=== PATIENT | male | born 1995 | race Hispanic/Latino ===

== ENCOUNTER 2016-09-28 00:48 | Emergency (ER) | payer OTHER ==
[2016-09-28] MEDS ORDERED: TDAP Vaccine 0.5 mL Syr IM ONE (01:04)
[2016-09-28] MEDS ORDERED: Lidocaine/Epi 1% 1:100000 20 ML IJ ONE (01:05)
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
[2016-09-28] MEDS ORDERED: Lidocaine 2% w Epi 1:100,000 Inj IJ ONE (02:18)
[2016-09-28] MEDS ORDERED: Lidocaine 2% w Epi 1:200,000 Pf Inj IJ ONE (02:25)
[2016-09-28 02:54] VITALS: BP 130/74; PULSE 83; RESP 16; TEMP 98.1
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
[2016-10-01 20:10] VITALS: O2SAT 98
== END 2016-09-28 02:51 | disposition home or self-care (01) ==
LOC: H.ER 00:48
DX: S09.90XA Unspecified injury of head, initial encounter (principal); S01.81XA Laceration without foreign body of other part of head, initial encounter; Y04.0XXA Assault by unarmed brawl or fight, initial encounter; Y92.89 Other specified places as the place of occurrence of the external cause; F10.10 Alcohol abuse, uncomplicated

== ENCOUNTER 2016-10-02 18:25 | Emergency (ER) | payer OTHER ==
[2016-10-02 18:53] VITALS: BP 136/76; PULSE 68; RESP 18; TEMP 98.2; O2SAT 100
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
== END 2016-10-02 19:33 | disposition home or self-care (01) ==
LOC: H.ER 18:25
DX: Z48.02 Encounter for removal of sutures (principal)